=== PATIENT | female | born 1995 | race African-American/Black ===

== ENCOUNTER 2020-11-19 07:15 | Inpatient (IN) | payer BC ==
[2020-11-19 08:06] VITALS: BMI 26.2
[2020-11-19 09:07] LABS: BASO % 0.5 % (0-2.0); EOS % 2.7 % (0-4.5); HEMATOCRIT 29.7 % (32.4-45.2); HEMOGLOBIN 9.9 GM/dL (10.7-15.3); LYMPH % 26.6 % (8-40); MCH 27.1 pg (25.7-33.7); MCHC 33.4 g/dl (32.0-36.0); MEAN CELL VOLUME 81.2 fl (80-96); MONO % 8.9 % (3.8-10.2); NEUT % 61.3 % (42.8-82.8); PLATELET COUNT 248 K/MM3 (134-434); RBC 3.66 M/mm3 (3.60-5.2); RDW 15.3 % (11.6-15.6); WHITE BLOOD COUNT 8.3 K/mm3 (4.0-10.0)
[2020-11-19] MEDS ORDERED: BUTORPHANOL TARTRATE 1 MG/ML VIAL IVPB ONE (09:07)
[2020-11-19] MEDS ORDERED: PROMETHAZINE HCL 25 MG/1 ML VIAL IVPUSH ONE (09:07)
[2020-11-19 09:15] LABS: INR 1.01 (0.83-1.09); PROTHROMBIN TIME (PATIENT) 12.2 SEC (9.7-13.0)
[2020-11-19] MEDS ORDERED: OXYTOCIN 30 UNITS in 0.9% NS 30 UNIT/500 ML INFUS.BAG IVPB SCH (09:15)
[2020-11-19] MEDS ORDERED: DEXTROSE 5%-LACTATED RINGERS 1,000 ML IV SCH (09:15)
[2020-11-19 09:18] LABS: ACTIVATED PTT 27.8 SECONDS (25.2-36.5)
[2020-11-19] MEDS ORDERED: AMPICILLIN - 2 GM in SODIUM CHLORIDE 100 ML IVPB ONE (09:35)
[2020-11-19 09:37] LABS: POTASSIUM 4.3 mmol/L (3.5-5.1)
[2020-11-19 09:39] LABS: BLOOD UREA NITROGEN 5.6 mg/dL (7-18); CALCIUM 8.8 mg/dL (8.5-10.1)
[2020-11-19] MEDS ORDERED: AMPICILLIN SODIUM 2 GM VIAL ONE (09:41)
[2020-11-19] MEDS ORDERED: SODIUM CHLORIDE 100 ML IVPB ONE ×2 (09:41→13:28)
[2020-11-19 09:43] LABS: CREATININE 0.8 mg/dL (0.55-1.3)
[2020-11-19] MEDS ORDERED: PCA PUMP NR ONE (11:47)
[2020-11-19] MEDS ORDERED: FENTANYL/BUPIVACAINE/NS/PF - PCEA - 50 ML DISP.SYRIN EP ONE (11:48)
[2020-11-19] MEDS ORDERED: BUPIVACAINE HCL/PF 0.25% (2.5MG/ML) 10 ML VIAL ONE (11:54)
[2020-11-19] MEDS ORDERED: NALOXONE HCL 0.4 MG/ML VIAL IVPUSH PRN (12:14)
[2020-11-19] MEDS ORDERED: FENTANYL/BUPIVACAINE/NS/PF - PCEA - 50 ML DISP.SYRIN EP SCH (12:15)
[2020-11-19] MEDS ORDERED: AMPICILLIN SODIUM 1 GM VIAL ONE (13:28)
[2020-11-19] MEDS ORDERED: AMPICILLIN - 1 GM in SODIUM CHLORIDE 100 ML IVPB SCH (13:35)
[2020-11-19] MEDS ORDERED: ELECTROLYTE-148 SOLN 1,000 ML IV SCH (14:00)
[2020-11-19] MEDS ORDERED: WITCH HAZEL 50% (TUCKS) 40 PAD/JAR PAD TP PRN (14:13)
[2020-11-19] MEDS ORDERED: BENZOCAINE 20% 57 GM BOTTLE TP PRN (14:13)
[2020-11-19] MEDS ORDERED: METHYLERGONOVINE MALEATE 0.2 MG/1 ML AMP IM PRN (14:13)
[2020-11-19] MEDS ORDERED: BENZOCAINE 28 GM HEMORRHOIDAL OINTMENT TP PRN (14:13)
[2020-11-19] MEDS ORDERED: ACETAMINOPHEN 325 MG TABLET (FP) PO PRN (14:13)
[2020-11-19] MEDS ORDERED: BISACODYL 10 MG SUPP.RECT RC PRN (14:13)
[2020-11-19] MEDS ORDERED: IBUPROFEN 600 MG TABLET (FP) PO PRN (14:13)
[2020-11-19] MEDS ORDERED: oxyCODONE HCL 5 MG TABLET PO PRN (14:13)
[2020-11-19] MEDS ORDERED: OXYTOCIN 20 UNITS in 0.9% NS 20 UNIT/1,000 ML INFUS.BAG IV SCH (14:15)
[2020-11-19] MEDS ORDERED: IBUPROFEN 600 MG TABLET (FP) PO ONE (15:25)
[2020-11-20 08:33] LABS: BASO % 0.3 % (0-2.0); EOS % 2.2 % (0-4.5); HEMATOCRIT 25.5 % (32.4-45.2); HEMOGLOBIN 8.3 GM/dL (10.7-15.3); LYMPH % 21.7 % (8-40); MCH 26.7 pg (25.7-33.7); MCHC 32.7 g/dl (32.0-36.0); MEAN CELL VOLUME 81.8 fl (80-96); MEAN PLT VOLUME 9.2 fl (7.5-11.1); MONO % 9.4 % (3.8-10.2); NEUT % 66.4 % (42.8-82.8); PLATELET COUNT 217 K/MM3 (134-434); RBC 3.12 M/mm3 (3.60-5.2); RDW 15.7 % (11.6-15.6); WHITE BLOOD COUNT 12.3 K/mm3 (4.0-10.0)
[2020-11-20] MEDS: PRENATAL VITAMINS W/ FOLIC ACID TABLET (FP) PO SCH (10:30)
[2020-11-20] MEDS: FERROUS SO4 325 MG TABLET (FP) PO SCH (10:30)
[2020-11-20] MEDS ORDERED: SENNOSIDES/DOCUSATE COMBO (SENNA PLUS) TABLET (UD) PO PRN (22:00)
[2020-11-21] MEDS: FERROUS SO4 325 MG TABLET (FP) PO SCH (09:27)
[2020-11-21] MEDS: PRENATAL VITAMINS W/ FOLIC ACID TABLET (FP) PO SCH (09:27)
[2020-11-21 10:09] VITALS: BP 121/63; PULSE 92; TEMP 97.8
== END 2020-11-21 12:25 | disposition home or self-care (01) | DRG 807 ==
LOC: JLDR 07:15 → J3W 16:40
PROVIDERS: ADMIT Obstetrics & Gynecology; ATTEND Obstetrics & Gynecology
PROC: 10D07Z6 Extraction of Products of Conception, Vacuum, Via Natural or Artificial Opening (ICD-10-PCS; principal; 2020-11-19)
DX: O66.5 Attempted application of vacuum extractor and forceps (principal); Z37.0 Single live birth; Z3A.39 39 weeks gestation of pregnancy
CPT/HCPCS: 36415; 59409; 80048; 85025; 85610; 85730; 86780; 86850; 86900; 86901